=== PATIENT | male | born 2000 ===

== ENCOUNTER 2019-03-15 22:28 | Emergency (ER) | payer OTHER ==
[2019-03-15] MEDS ORDERED: Lidocaine 1% PF 5 ML VIAL ONE (22:39)
[2019-03-15] MEDS ORDERED: Bacitracin Zinc 1 Packet ONE (22:54)
== END 2019-03-15 23:00 | disposition home or self-care (01) ==
LOC: SCSER 22:28
DX: S71.111A Laceration without foreign body, right thigh, initial encounter (principal); W26.8XXA Contact with other sharp object(s), not elsewhere classified, initial encounter
CPT/HCPCS: 12001; J2001